=== PATIENT | male | born 1945 | race Caucasian/White ===

== ENCOUNTER 2020-09-08 21:46 | Emergency (ER) | payer MEDICARE, OTHER ==
[2020-09-08 22:26] LABS: BASOPHIL 0.2 % (0-2); EOSINOPHIL 0.3 % (0-7); HCT 42.8 % (42.0-52.0); HGB 13.3 g/dl (13.2-18.0); MCH 28.7 pg (25.0-31.0); MCHC 31.1 g/dL (32.0-36.0); MCV 92.2 fL (78.0-100.0); MPV 10.3 fL (6.0-9.5); NEUTROPHIL 86.1 % (41-80); NRBC 0; PLT 164 K/uL (150-400); RBC 4.64 M/uL (4.70-6.00); RDW 13.5 % (11.5-14.0); WBC 13.4 K/uL (4.0-10.5)
[2020-09-08 22:32] LABS: BILIRUBIN NEGATIVE (NEGATIVE); BLOOD 3+ Ery/uL (NEGATIVE); CLARITY HAZY (CLEAR); COLOR YELLOW (YELLOW); GLUCOSE (U) NORMAL (NORMAL); LEUKOCYTES 1+ Leu/uL (NEGATIVE); NITRITE POSITIVE (NEGATIVE); PROTEIN 2+ mg/dL (NEGATIVE); SPECIFIC GRAVITY >=1.030 (1.001-1.030); pH 5.5 (5.0-9.0)
[2020-09-08 22:38] LABS: URINARY RBC 20-50; URINARY WBC TNTC
[2020-09-08 22:39] LABS: BACTERIA 4+
[2020-09-08 22:42] LABS: ALBUMIN 3.3 g/dL (3.4-5.0); BILIRUBIN - TOTAL 1.4 mg/dL (0.2-1.0); BUN/CREAT RATIO (CALC) 16.5 RATIO; CREATININE 0.91 mg/dL (0.67-1.17); GLOBULIN (CALCULATION) 4.1 g/dL; TOTAL PROTEIN 7.4 g/dL (6.4-8.2)
[2020-09-08 22:46] LABS: LACTIC ACID 0.9 mmol/L (0.4-1.9)
[2020-09-08 23:06] LABS: CORONAVIRUS 2019 SARS-COV-2 NEGATIVE (NEGATIVE); INFLUENZA A NAA NEGATIVE (NEGATIVE)
[2020-09-08] MEDS ORDERED: LEVAQUIN500 MG PO (23:53)
== END 2020-09-09 00:35 | disposition home or self-care (01) ==
LOC: FER 21:46
PROVIDERS: Emergency Medicine
DX: N39.0 Urinary tract infection, site not specified (principal); R53.1 Weakness; R60.0 Localized edema; I10 Essential (primary) hypertension; Z20.822 Contact with and (suspected) exposure to COVID-19
CPT/HCPCS: 36415; 71045; 80053; 81001; 83605; 84145; 84484; 85025; 87040; 87088; 93005; J0696; J2270; J2405; J7040; U0002

== ENCOUNTER 2020-09-28 14:42 | Inpatient (IN) | payer MEDICARE, OTHER ==
[~2020-09-28 14:42] MED LIST: LEVAQUIN500 MG PO
[2020-09-28] MEDS ORDERED: COZAAR50 MG PO (15:30)
[2020-09-28] MEDS ORDERED: COREG 6.25MG6.25 MG PO (15:30)
[2020-09-28] MEDS ORDERED: CARBIDOPA-LEVO1 EAC1 PO (15:31)
[2020-09-28] MEDS ORDERED: LASIX40 MG PO (15:32)
[2020-09-28] MEDS ORDERED: K-DUR20 MEQ PO (15:32)
[2020-09-28 16:36] LABS: BASOPHIL 0.5 % (0-2); EOSINOPHIL 3.9 % (0-7); HCT 39.6 % (42.0-52.0); HGB 12.2 g/dl (13.2-18.0); LYMPHOCYTE 31.3 % (15-48); MCH 28.6 pg (25.0-31.0); MCHC 30.8 g/dL (32.0-36.0); MCV 92.7 fL (78.0-100.0); MONOCYTE 9.1 % (0-12); MPV 10.3 fL (6.0-9.5); NEUTROPHIL 54.7 % (41-80); NRBC 0; PLT 185 K/uL (150-400); RBC 4.27 M/uL (4.70-6.00); RDW 13.4 % (11.5-14.0)
[2020-09-28 17:12] LABS: PRO-BNP 38 pg/mL (<450)
[2020-09-28 17:29] LABS: ALBUMIN 3.2 g/dL (3.4-5.0); BILIRUBIN - TOTAL 0.6 mg/dL (0.2-1.0); BUN/CREAT RATIO (CALC) 16.7 RATIO; CREATININE 0.96 mg/dL (0.67-1.17); GLOBULIN (CALCULATION) 3.3 g/dL; TOTAL PROTEIN 6.5 g/dL (6.4-8.2)
[2020-09-28 17:31] LABS: BILIRUBIN NEGATIVE (NEGATIVE); BLOOD 3+ Ery/uL (NEGATIVE); CLARITY CLEAR (CLEAR); COLOR YELLOW (YELLOW); GLUCOSE (U) NORMAL (NORMAL); LEUKOCYTES TRACE Leu/uL (NEGATIVE); NITRITE POSITIVE (NEGATIVE); PROTEIN 2+ mg/dL (NEGATIVE); SPECIFIC GRAVITY 1.025 (1.001-1.030); pH 7.5 (5.0-9.0)
[2020-09-28 17:33] LABS: RETICULOCYTE COUNT 1.4 % (1.0-2.0)
[2020-09-28 17:45] LABS: BACTERIA TRACE
[2020-09-28 17:46] LABS: IRON % SATURATION 19.3 %SAT (20-50)
[2020-09-28 17:47] LABS: TRIPLE PHOSPHATE CRYSTALS MODERATE; URINARY RBC TNTC
[2020-09-28 18:17] LABS: FOLIC ACID (SERUM) 9.1 ng/mL (8.6-58.9)
[2020-09-29 03:57] LABS: BASOPHIL 0.3 % (0-2); EOSINOPHIL 2.6 % (0-7); HGB 11.9 g/dl (13.2-18.0); LYMPHOCYTE 22.6 % (15-48); MCH 28.5 pg (25.0-31.0); MCHC 31.3 g/dL (32.0-36.0); MCV 90.9 fL (78.0-100.0); MONOCYTE 8.7 % (0-12); MPV 10.6 fL (6.0-9.5); NEUTROPHIL 65.5 % (41-80); NRBC 0; PLT 168 K/uL (150-400); RBC 4.18 M/uL (4.70-6.00); RDW 13.3 % (11.5-14.0); WBC 7.8 K/uL (4.0-10.5)
[2020-09-29 04:29] LABS: BUN/CREAT RATIO (CALC) 15.4 RATIO; CREATININE 0.91 mg/dL (0.67-1.17); GLOBULIN (CALCULATION) 3.4 g/dL; MAGNESIUM 1.9 mg/dL (1.8-2.4); PHOSPHORUS 3.8 mg/dL (2.6-4.7); POTASSIUM 3.4 mmol/L (3.5-5.1); TOTAL PROTEIN 6.4 g/dL (6.4-8.2)
[2020-09-29 04:39] LABS: PRO-BNP 87 pg/mL (<450)
[2020-09-29 18:56] LABS: BUN/CREAT RATIO (CALC) 18.3 RATIO; CREATININE 0.93 mg/dL (0.67-1.17); POTASSIUM 3.8 mmol/L (3.5-5.1)
[2020-09-30 04:06] LABS: BASOPHIL 0.3 % (0-2); EOSINOPHIL 4.8 % (0-7); HCT 38.1 % (42.0-52.0); HGB 11.9 g/dl (13.2-18.0); LYMPHOCYTE 34.5 % (15-48); MCH 28.3 pg (25.0-31.0); MCHC 31.2 g/dL (32.0-36.0); MCV 90.7 fL (78.0-100.0); MONOCYTE 9.8 % (0-12); MPV 10.2 fL (6.0-9.5); NEUTROPHIL 50.3 % (41-80); NRBC 0; PLT 175 K/uL (150-400); RDW 13.4 % (11.5-14.0)
[2020-09-30 04:51] LABS: BILIRUBIN - TOTAL 0.7 mg/dL (0.2-1.0); BUN/CREAT RATIO (CALC) 17.2 RATIO; CREATININE 0.93 mg/dL (0.67-1.17); GLOBULIN (CALCULATION) 3.5 g/dL; MAGNESIUM 1.9 mg/dL (1.8-2.4); POTASSIUM 3.5 mmol/L (3.5-5.1); TOTAL PROTEIN 6.5 g/dL (6.4-8.2)
[2020-10-01 06:30] LABS: BASOPHIL 0.4 % (0-2); EOSINOPHIL 5.3 % (0-7); HCT 39.7 % (42.0-52.0); HGB 12.4 g/dl (13.2-18.0); LYMPHOCYTE 36.4 % (15-48); MCH 28.4 pg (25.0-31.0); MCHC 31.2 g/dL (32.0-36.0); MCV 90.8 fL (78.0-100.0); MONOCYTE 10.9 % (0-12); MPV 10.4 fL (6.0-9.5); NEUTROPHIL 46.6 % (41-80); NRBC 0; PLT 174 K/uL (150-400); RBC 4.37 M/uL (4.70-6.00); RDW 13.2 % (11.5-14.0); WBC 5.6 K/uL (4.0-10.5)
[2020-10-01 06:59] LABS: BUN/CREAT RATIO (CALC) 19.2 RATIO; CREATININE 0.99 mg/dL (0.67-1.17); PHOSPHORUS 3.9 mg/dL (2.6-4.7)
[2020-10-01 07:03] LABS: MAGNESIUM 2.3 mg/dL (1.8-2.4)
--- NOTE | 2020-10-01 16:43 | NUR ---
10/01/20 Mr. Card is current with [facility] . [facility] notified of admission via [facility].
--- NOTE | 2020-10-01 17:29 | NUR ---
10/01/20 Mr. Card lives with his spouse. He has a rw, pauly, 3in1, toilet rito, and s. chair.
[2020-10-02 06:01] LABS: HCT 41.3 % (42.0-52.0); HGB 12.6 g/dl (13.2-18.0); MCH 27.8 pg (25.0-31.0); MCHC 30.5 g/dL (32.0-36.0); MCV 91.2 fL (78.0-100.0); MPV 10.8 fL (6.0-9.5); RBC 4.53 M/uL (4.70-6.00); RDW 13.3 % (11.5-14.0); WBC 6.5 K/uL (4.0-10.5)
[2020-10-02 06:27] LABS: POTASSIUM 3.9 mmol/L (3.5-5.1)
[2020-10-03] MEDS ORDERED: BUMEX1 MG PO (07:54)
[2020-10-03] MEDS ORDERED: POTASSIUM CHLO20 ME2 PO (07:54)
[2020-10-03] MEDS ORDERED: MIRALAX17 GM PO (07:55)
[2020-10-03] MEDS ORDERED: UROCIT-K10 MEQ PO (11:31)
== END 2020-10-03 11:38 | disposition home or self-care (01) | DRG 292 ==
LOC: FTCU 14:42
PROVIDERS: Internal Medicine Cardiovascular Disease; Nurse Practitioner Family; ADMIT Internal Medicine
DX: I11.0 Hypertensive heart disease with heart failure (principal); N39.0 Urinary tract infection, site not specified; I50.33 Acute on chronic diastolic (congestive) heart failure; E78.5 Hyperlipidemia, unspecified; G20 Parkinson's disease; K56.41 Fecal impaction; I77.819 Aortic ectasia, unspecified site; I25.10 Atherosclerotic heart disease of native coronary artery without angina pectoris; F17.210 Nicotine dependence, cigarettes, uncomplicated; Z98.890 Other specified postprocedural states
CPT/HCPCS: 36415; 71045; 80048; 80053; 80061; 81001; 82607; 82728; 82746; 83540; 83550; 83605; 83735; 83880; 84100; 84145; 84439; 84443; 84484; 85025; 85379; 87045; 87046; 87088; 87205; 87449; 93005; 93970; 94010; 97110; 97116; 97162; 97166; 97530-GP; 97535; J0696; J1650; J2916; J3420; Q9967; U0002

== ENCOUNTER 2020-10-16 23:21 | Day surgery (SDCO) | payer MEDICARE, OTHER ==
[~2020-10-16 23:21] MED LIST changes: +BUMEX1 MG PO; +CARBIDOPA-LEVO1 EAC1 PO; +COREG 6.25MG6.25 MG PO; +COZAAR50 MG PO; +K-DUR20 MEQ PO; +LASIX40 MG PO; +MIRALAX17 GM PO; +POTASSIUM CHLO20 ME2 PO; +UROCIT-K10 MEQ PO
[2020-10-16 23:52] LABS: BASOPHIL 0.2 % (0-2); EOSINOPHIL 0.9 % (0-7); HCT 38.9 % (42.0-52.0); HGB 12.1 g/dl (13.2-18.0); LYMPHOCYTE 11.3 % (15-48); MCH 28.7 pg (25.0-31.0); MCHC 31.1 g/dL (32.0-36.0); MCV 92.4 fL (78.0-100.0); MONOCYTE 8.9 % (0-12); MPV 10.2 fL (6.0-9.5); NEUTROPHIL 78.4 % (41-80); NRBC 0; PLT 166 K/uL (150-400); RBC 4.21 M/uL (4.70-6.00); RDW 13.2 % (11.5-14.0); WBC 11.6 K/uL (4.0-10.5)
[2020-10-17 00:15] LABS: LACTIC ACID 1.2 mmol/L (0.4-1.9)
[2020-10-17 00:16] LABS: PRO-BNP 135 pg/mL (<450)
[2020-10-17 00:22] LABS: ALBUMIN 3.1 g/dL (3.4-5.0); BILIRUBIN - TOTAL 1.6 mg/dL (0.2-1.0); BUN/CREAT RATIO (CALC) 18.4 RATIO; CREATININE 1.14 mg/dL (0.67-1.17); GLOBULIN (CALCULATION) 4.3 g/dL; POTASSIUM 3.7 mmol/L (3.5-5.1); TOTAL PROTEIN 7.4 g/dL (6.4-8.2)
[2020-10-17 01:11] LABS: CORONAVIRUS 2019 SARS-COV-2 NEGATIVE (NEGATIVE); INFLUENZA A NAA NEGATIVE (NEGATIVE)
[2020-10-17 01:36] LABS: BILIRUBIN NEGATIVE (NEGATIVE); BLOOD TRACE-INTACT Ery/uL (NEGATIVE); CLARITY CLEAR (CLEAR); COLOR YELLOW (YELLOW); GLUCOSE (U) NORMAL (NORMAL); LEUKOCYTES NEGATIVE Leu/uL (NEGATIVE); NITRITE NEGATIVE (NEGATIVE); PROTEIN NEGATIVE (NEGATIVE); UROBILINOGEN 0.2 mg/dL (0.2-1.0); pH 5.5 (5.0-9.0)
[2020-10-17 01:47] LABS: BACTERIA TRACE
[2020-10-17 05:58] LABS: BASOPHIL 0.2 % (0-2); EOSINOPHIL 0.6 % (0-7); HCT 37.2 % (42.0-52.0); HGB 11.5 g/dl (13.2-18.0); LYMPHOCYTE 15.6 % (15-48); MCH 27.8 pg (25.0-31.0); MCHC 30.9 g/dL (32.0-36.0); MCV 90.1 fL (78.0-100.0); MONOCYTE 8.8 % (0-12); MPV 10.5 fL (6.0-9.5); NRBC 0; PLT 169 K/uL (150-400); RBC 4.13 M/uL (4.70-6.00); RDW 13.2 % (11.5-14.0); WBC 11.2 K/uL (4.0-10.5)
[2020-10-17 06:34] LABS: BUN/CREAT RATIO (CALC) 18.8 RATIO; CREATININE 1.12 mg/dL (0.67-1.17); POTASSIUM 3.1 mmol/L (3.5-5.1)
--- NOTE | 2020-10-17 13:23 | NUR ---
SPOKE WITH PATIENT AND (DESTINY) ABOUT NEEDS AT DC, PATIENT CURRENT WITH [facility], AND USES A ROLLING WALKER AT HOME. WOULD LIKE TO CONTINUE WITH [facility] AT DC.
--- NOTE | 2020-10-17 14:53 | NUR ---
10/17 Mr. Card is current with [facility]. He reports to wish to continue their services. He has a cane, rw, 3in1, toilet rizer and s. chair. [facility] was notified via [facility] of admission and patient's question re: the reason PT has not yet seen him.
[2020-10-18 06:18] LABS: BASOPHIL 0.1 % (0-2); EOSINOPHIL 1.8 % (0-7); HCT 37.2 % (42.0-52.0); HGB 11.3 g/dl (13.2-18.0); LYMPHOCYTE 18.8 % (15-48); MCHC 30.4 g/dL (32.0-36.0); MCV 92.1 fL (78.0-100.0); MONOCYTE 8.8 % (0-12); MPV 10.5 fL (6.0-9.5); NRBC 0; PLT 166 K/uL (150-400); RBC 4.04 M/uL (4.70-6.00); RDW 13.3 % (11.5-14.0); WBC 7.9 K/uL (4.0-10.5)
[2020-10-18 06:29] LABS: BUN/CREAT RATIO (CALC) 19.3 RATIO; CREATININE 1.19 mg/dL (0.67-1.17)
[2020-10-19 06:36] LABS: CREATININE 1.04 mg/dL (0.67-1.17); POTASSIUM 3.2 mmol/L (3.5-5.1)
[2020-10-19] MEDS ORDERED: MIRALAX17 GM PO (14:03)
[2020-10-19] MEDS ORDERED: BUMEX1 MG PO ×2 (14:04→14:05)
[2020-10-19] MEDS ORDERED: UROCIT-K10 MEQ PO (14:14)
== END 2020-10-19 15:34 | disposition home health service (06) ==
LOC: FER 23:21 → FMS 10-17 01:37
PROVIDERS: Emergency Medicine Emergency Medical Services; Nurse Practitioner; ADMIT Internal Medicine
DX: I11.0 Hypertensive heart disease with heart failure (principal); I50.33 Acute on chronic diastolic (congestive) heart failure; R19.7 Diarrhea, unspecified; I45.10 Unspecified right bundle-branch block; I44.0 Atrioventricular block, first degree; G20 Parkinson's disease; I35.1 Nonrheumatic aortic (valve) insufficiency; I77.810 Thoracic aortic ectasia; R60.0 Localized edema; E87.6 Hypokalemia; E66.3 Overweight; Z68.35 Body mass index [BMI] 35.0-35.9, adult; Z87.891 Personal history of nicotine dependence; Z79.899 Other long term (current) drug therapy; Z20.822 Contact with and (suspected) exposure to COVID-19
CPT/HCPCS: 36415; 71045; 74018; 80048; 80053; 81001; 83605; 83880; 84145; 84484; 85025; 87040; 87449; 93005; G0378; J1650; U0002

== ENCOUNTER 2020-11-20 12:51 | Day surgery (SDCO) | payer MEDICARE, OTHER ==
[~2020-11-20] VITALS: Ht 190.5 cm; Wt 119.0 kg
[2020-11-20 13:42] LABS: BASOPHIL 0.3 % (0-2); EOSINOPHIL 3.3 % (0-7); HCT 41.5 % (42.0-52.0); HGB 13.1 g/dl (13.2-18.0); LYMPHOCYTE 21.4 % (15-48); MCH 28.5 pg (25.0-31.0); MCHC 31.6 g/dL (32.0-36.0); MCV 90.4 fL (78.0-100.0); MONOCYTE 6.5 % (0-12); MPV 10.6 fL (6.0-9.5); NEUTROPHIL 67.7 % (41-80); NRBC 0; PLT 210 K/uL (150-400); RBC 4.59 M/uL (4.70-6.00); RDW 13.2 % (11.5-14.0); WBC 8.8 K/uL (4.0-10.5)
[2020-11-20 14:01] LABS: ALBUMIN 3.4 g/dL (3.4-5.0); BILIRUBIN - TOTAL 0.9 mg/dL (0.2-1.0); BUN/CREAT RATIO (CALC) 12.7 RATIO; CREATININE 1.65 mg/dL (0.67-1.17); GLOBULIN (CALCULATION) 4.8 g/dL; POTASSIUM 3.2 mmol/L (3.5-5.1); TOTAL PROTEIN 8.2 g/dL (6.4-8.2)
[2020-11-20 14:31] LABS: BILIRUBIN NEGATIVE (NEGATIVE); BLOOD 2+ Ery/uL (NEGATIVE); COLOR YELLOW (YELLOW); GLUCOSE (U) NORMAL (NORMAL); LEUKOCYTES 1+ Leu/uL (NEGATIVE); NITRITE NEGATIVE (NEGATIVE); PROTEIN 1+ mg/dL (NEGATIVE); UROBILINOGEN 0.2 mg/dL (0.2-1.0)
[2020-11-20 14:32] LABS: CLARITY SLIGHTLY HAZY (CLEAR)
[2020-11-20 14:36] LABS: AMORPHOUS URATES CRYSTALS TRACE; BACTERIA 2+; SQUAMOUS EPITHELIAL CELLS RARE
[2020-11-20 16:55] LABS: MAGNESIUM 1.9 mg/dL (1.8-2.4); PHOSPHORUS 3.4 mg/dL (2.6-4.7)
[2020-11-20] MEDS ORDERED: BUMEX1 MG PO ×2 (17:34→17:35)
[2020-11-20] MEDS ORDERED: K-DUR20 MEQ PO ×2 (17:36)
[2020-11-21 05:44] LABS: BASOPHIL 0.4 % (0-2); EOSINOPHIL 4.5 % (0-7); HCT 36.6 % (42.0-52.0); HGB 11.5 g/dl (13.2-18.0); LYMPHOCYTE 30.4 % (15-48); MCH 27.9 pg (25.0-31.0); MCHC 31.4 g/dL (32.0-36.0); MCV 88.8 fL (78.0-100.0); MONOCYTE 7.9 % (0-12); MPV 10.5 fL (6.0-9.5); NEUTROPHIL 55.8 % (41-80); NRBC 0; PLT 180 K/uL (150-400); RBC 4.12 M/uL (4.70-6.00); RDW 13.2 % (11.5-14.0); WBC 7.3 K/uL (4.0-10.5)
[2020-11-21 06:03] LABS: ALBUMIN 2.8 g/dL (3.4-5.0); BILIRUBIN - TOTAL 0.8 mg/dL (0.2-1.0); BUN/CREAT RATIO (CALC) 16.3 RATIO; CREATININE 1.29 mg/dL (0.67-1.17); GLOBULIN (CALCULATION) 3.8 g/dL; POTASSIUM 3.2 mmol/L (3.5-5.1); TOTAL PROTEIN 6.6 g/dL (6.4-8.2)
[2020-11-21] MEDS ORDERED: HYOSCYAMINE0.125 MG PO (13:52)
[2020-11-21] MEDS ORDERED: BUMETANIDE2 MG PO (13:52)
[2020-11-21] MEDS ORDERED: CEFDINIR300 MG PO (13:52)
--- NOTE | 2020-11-21 14:50 | NUR ---
PT DISCAHRGED VIA WHEELCHAIR WITH AT 250 PM. IV REMOVED TELE REMOVED.
--- NOTE | 2020-11-21 15:59 | NUR ---
11/21/20 Mr. Card was discharged home. [facility] is current and was notified of discharge. - Patient lives at home with his spouse. He has a rw, cane, 3in1, rizer, and s. chair.
== END 2020-11-21 14:47 | disposition home health service (06) ==
LOC: FER 12:51 → FTCU 15:25
PROVIDERS: Emergency Medicine; Nurse Practitioner; ADMIT Internal Medicine
DX: E86.9 Volume depletion, unspecified (principal); I11.0 Hypertensive heart disease with heart failure; I50.30 Unspecified diastolic (congestive) heart failure; N17.8 Other acute kidney failure; I95.1 Orthostatic hypotension; N30.01 Acute cystitis with hematuria; G20 Parkinson's disease; Z79.899 Other long term (current) drug therapy; Z20.822 Contact with and (suspected) exposure to COVID-19; Z87.891 Personal history of nicotine dependence; Z82.49 Family history of ischemic heart disease and other diseases of the circulatory system
CPT/HCPCS: 36415; 70450; 71045; 80053; 81001; 83605; 83735; 83880; 84100; 85025; 87040; 87076; 87088; 87186; 93005; 97116; 97162; 97530-GP; G0378; J0696; J7040; U0002

== ENCOUNTER 2021-04-29 11:39 | Emergency (ER) | payer MEDICARE, OTHER ==
[~2021-04-29 11:39] MED LIST changes: +BUMETANIDE2 MG PO; +CEFDINIR300 MG PO; +HYOSCYAMINE0.125 MG PO
[2021-04-29 13:01] LABS: BASOPHIL 0.4 % (0-2); EOSINOPHIL 2.6 % (0-7); HCT 40.8 % (42.0-52.0); HGB 12.7 g/dl (13.2-18.0); LYMPHOCYTE 28.8 % (15-48); MCH 27.8 pg (25.0-31.0); MCHC 31.1 g/dL (32.0-36.0); MCV 89.3 fL (78.0-100.0); MONOCYTE 7.8 % (0-12); MPV 11.3 fL (6.0-9.5); NEUTROPHIL 59.9 % (41-80); NRBC 0; PLT 171 K/uL (150-400); RBC 4.57 M/uL (4.70-6.00); WBC 7.6 K/uL (4.0-10.5)
[2021-04-29 13:24] LABS: ALBUMIN 3.5 g/dL (3.4-5.0); BILIRUBIN - TOTAL 1.1 mg/dL (0.2-1.0); BUN/CREAT RATIO (CALC) 16.2 RATIO; CREATININE 1.11 mg/dL (0.67-1.17); GLOBULIN (CALCULATION) 3.7 g/dL; POTASSIUM 3.4 mmol/L (3.5-5.1); TOTAL PROTEIN 7.2 g/dL (6.4-8.2)
[2021-04-29 13:27] LABS: LACTIC ACID 1.4 mmol/L (0.4-1.9)
[2021-04-29 13:42] LABS: BILIRUBIN 1+ mg/dL (NEGATIVE); BLOOD 1+ Ery/uL (NEGATIVE); CLARITY CLOUDY (CLEAR); COLOR YELLOW (YELLOW); GLUCOSE (U) NORMAL (NORMAL); LEUKOCYTES 2+ Leu/uL (NEGATIVE); NITRITE POSITIVE (NEGATIVE); PROTEIN 1+ mg/dL (NEGATIVE)
[2021-04-29 13:50] LABS: BACTERIA 4+; URINARY WBC TNTC
== END 2021-04-29 17:07 | disposition home or self-care (01) ==
LOC: FER 11:39
PROVIDERS: Internal Medicine
DX: E86.0 Dehydration (principal)
CPT/HCPCS: 36415; 80053; 81001; 83605; 85025; 99284

== ENCOUNTER 2021-08-16 09:19 | Emergency (ER) | payer MEDICARE, OTHER ==
[2021-08-16 10:15] LABS: BASOPHIL 0.2 % (0-2); EOSINOPHIL 0.4 % (0-7); HGB 12.2 g/dl (13.2-18.0); LYMPHOCYTE 10.6 % (15-48); MCH 28.6 pg (25.0-31.0); MCHC 31.3 g/dL (32.0-36.0); MCV 91.3 fL (78.0-100.0); MONOCYTE 6.6 % (0-12); MPV 10.5 fL (6.0-9.5); NEUTROPHIL 81.6 % (41-80); NRBC 0; PLT 169 K/uL (150-400); RBC 4.27 M/uL (4.70-6.00); RDW 14.1 % (11.5-14.0); WBC 16.2 K/uL (4.0-10.5)
[2021-08-16 10:37] LABS: ALBUMIN 3.3 g/dL (3.4-5.0); BILIRUBIN - TOTAL 0.9 mg/dL (0.2-1.0); BUN/CREAT RATIO (CALC) 17.9 RATIO; CREATININE 0.84 mg/dL (0.67-1.17); GLOBULIN (CALCULATION) 3.6 g/dL; MAGNESIUM 2.1 mg/dL (1.8-2.4); POTASSIUM 3.7 mmol/L (3.5-5.1); TOTAL PROTEIN 6.9 g/dL (6.4-8.2)
[2021-08-16 10:45] LABS: BILIRUBIN NEGATIVE (NEGATIVE); BLOOD TRACE-INTACT Ery/uL (NEGATIVE); GLUCOSE (U) NORMAL (NORMAL); LEUKOCYTES 3+ Leu/uL (NEGATIVE); NITRITE POSITIVE (NEGATIVE); PROTEIN 1+ mg/dL (NEGATIVE); SPECIFIC GRAVITY 1.025 (1.001-1.030)
[2021-08-16 10:48] LABS: CLARITY HAZY (CLEAR); COLOR AMBER (YELLOW)
[2021-08-16 11:10] LABS: BACTERIA 3+; URINARY RBC RARE; URINARY WBC 20-50
[2021-08-16] MEDS ORDERED: CEFUROXIME500 MG PO (12:17)
== END 2021-08-16 15:57 | disposition home or self-care (01) ==
LOC: FER 09:19
PROVIDERS: Emergency Medicine
DX: N39.0 Urinary tract infection, site not specified (principal); R53.1 Weakness; I11.0 Hypertensive heart disease with heart failure; I50.9 Heart failure, unspecified; Z20.822 Contact with and (suspected) exposure to COVID-19
CPT/HCPCS: 36415; 71045; 80053; 81001; 83735; 83880; 84100; 84443; 84484; 85025; 87076; 87088; 87186; 93005; J7040; U0002

== ENCOUNTER 2021-09-04 13:34 | Emergency (ER) | payer MEDICARE, OTHER ==
[~2021-09-04 13:34] MED LIST changes: +CEFUROXIME500 MG PO
[2021-09-04 14:38] LABS: BASOPHIL 0.2 % (0-2); EOSINOPHIL 0.4 % (0-7); HGB 11.7 g/dl (13.2-18.0); LYMPHOCYTE 9.5 % (15-48); MCH 28.5 pg (25.0-31.0); MCHC 30.8 g/dL (32.0-36.0); MCV 92.7 fL (78.0-100.0); MONOCYTE 7.5 % (0-12); NEUTROPHIL 81.8 % (41-80); NRBC 0; PLT 184 K/uL (150-400); RDW 13.9 % (11.5-14.0); WBC 14.2 K/uL (4.0-10.5)
[2021-09-04 14:43] LABS: BILIRUBIN NEGATIVE (NEGATIVE); BLOOD 1+ Ery/uL (NEGATIVE); CLARITY CLEAR (CLEAR); COLOR YELLOW (YELLOW); GLUCOSE (U) NORMAL (NORMAL); LEUKOCYTES 3+ Leu/uL (NEGATIVE); NITRITE POSITIVE (NEGATIVE); PROTEIN TRACE (LOW) mg/dL (NEGATIVE); UROBILINOGEN 0.2 mg/dL (0.2-1.0)
[2021-09-04 14:46] LABS: INR 1.34 (0.9-1.2); PROTHROMBIN TIME 15.9 SECONDS (11.8-13.4); PTT 41.1 SECONDS (24.4-34.7)
[2021-09-04 14:51] LABS: URINARY WBC TNTC
[2021-09-04 14:52] LABS: BACTERIA 4+
[2021-09-04 15:13] LABS: ALBUMIN 3.1 g/dL (3.4-5.0); BILIRUBIN - TOTAL 0.8 mg/dL (0.2-1.0); BUN/CREAT RATIO (CALC) 14.3 RATIO; CREATININE 1.05 mg/dL (0.67-1.17); GLOBULIN (CALCULATION) 3.3 g/dL; MAGNESIUM 2.2 mg/dL (1.8-2.4); POTASSIUM 3.6 mmol/L (3.5-5.1); TOTAL PROTEIN 6.4 g/dL (6.4-8.2)
[2021-09-04] MEDS ORDERED: ROCEPHIN IV (16:20)
== END 2021-09-04 17:25 ==
LOC: FER 13:34
PROVIDERS: Emergency Medicine
DX: N39.0 Urinary tract infection, site not specified (principal); G92.9 Unspecified toxic encephalopathy; I50.9 Heart failure, unspecified; Z20.822 Contact with and (suspected) exposure to COVID-19
CPT/HCPCS: 36415; 71045; 80053; 81001; 82728; 83605; 83735; 83880; 84145; 84484; 85025; 85610; 85730; 87040; 93005; 96374; J0696; U0002